=== PATIENT | male | born 1955 | race Asian ===

== ENCOUNTER 2017-05-01 08:28 | Outpatient (CLI) | payer OTHER | END 2017-05-01 19:19 | disposition home or self-care (01) | LOC: US 08:28 | DX: R25.2 Cramp and spasm (principal) ==

== ENCOUNTER 2017-06-10 08:42 | Outpatient (CLI) | payer OTHER | END 2017-06-10 19:54 | disposition home or self-care (01) | LOC: US 08:42 | DX: M79.605 Pain in left leg (principal) | CPT/HCPCS: 36415; 82565; 84520; Q9963 ==